=== PATIENT | male | born 1945 | race Caucasian/White ===

== ENCOUNTER 2022-11-08 09:20 | Outpatient (AMB) | payer MEDICARE, SELFPAY ==
[2022-11-08 09:27] VITALS: BP 120/69; PULSE 65; BMI 24.7
--- NOTE | 2022-11-08 09:27 | MHC.OFFVIS ---
Intake Vital Signs 11/08/22 09:27 Height 5 ft 4 in Weight 144 lb BMI 24.7 BP 120/69 Blood Pressure Location Rt brachial Position Sitting Pulse 65 Intake Visit Reasons: lump on arm Intake Note: Patient was self referred for growth on lt forearm. Presen for 2yrs. Denies pain, oozing or itch. C/o growth on Rt lat thigh X5yrs. C/o bothersome when rubbing with jeans. Denies pain, itch. No hx of skin ca. [employer] Coach Required: No Accompanied by: Self / Same As Patient Allergies penicillin G Allergy (Mild, Verified 11/08/22 09:31) Blister HPI HPI Comments History of Present Illness Details Patient presents for evaluation of 2 soft tissue masses. One involving his right mid formula involving his left lateral thigh. He has had the former approximately 2 years time in the latter approximately 3-5 years time. He wishes to have them excised. He has never had such masses/growths before. Chart was reviewed patient evaluate [facility] Medical History (Updated 11/08/22 @ 09:32 by ISAIAS Bryant) Metatarsal bone fracture Glaucoma Family History (Updated 11/08/22 @ 09:33 by ISAIAS Bryant) Mother Dementia Social History (Updated 11/08/22 @ 09:34 by ISAIAS Bryant) Alcohol intake: current Alcohol intake frequency: holidays/special occasions only Alcohol type: wine Patient Tobacco Use Status: Former Tobacco user Quit Date: 50 yrs ago Physical Exam Vital Signs: Last Vital Signs Pulse 65 11/08/22 09:27 BP 120/69 11/08/22 09:27 BMI result Body Mass Index 24.7 Extrem Other: Approximately 2 x 1 cm right lateral mid forearm soft tissue mass suggestive of lipoma. Left distal lateral thigh deeply situated mass also consistent with the lipoma, measuring approximately 3 x 3 cm Office Procedures Excision Details: Or risks, benefits, alternatives of excision of right forearm and left thigh soft tissue mass reviewed with the patient included but not limited to bleeding, infection, recurrence, numbness, pain, scarring the patient was to proceed. Consent form signed. All questions were answered. After appropriate positioning, each area was prepped and draped infiltrated 1% lidocaine. Respectively longitudinal incision was made over each lesion and carried down through skin, subcutaneous tissue. The form lesion measured approximately 1 x 1 cm. The left lateral thigh measured approximately 3 x 3 cm. Each specimen was separately sent to pathology. Each wound was irrigated, secured hemostasis, and closed using running subcuticular 3-0 Vicryl sutures followed by Steri-Strips and sterile dressings. Patient tolerated procedure well. 19750-apzzd/arms/legs 1.1-2cm 86326-ghbib/arms/legs 2.1-3cm Procedure code (CPT) selection complete Office Meds lidocaine 1 %-epinephrine 1:100,000 injection solution Performing Provider: Frantz Ng MD Performing Location: [facility] Administered by: Frantz Ng MD on 11/08/22 10:12 Dose Route Admin Location Dispensed Lot Number Expiration Date [facility] Customer Counter Representative 20 mL Infiltration 20 mL Assessment & Plan Assessment & Plan (1) Lipoma: Code(s): D17.9 - Benign lipomatous neoplasm, unspecified Plan: Patient has been given local instructions including avoiding strenuous activities, shower in 2 days, ice to the area, Tylenol or Motrin for pain. Patient will see me as directed or p.r.n.. Orders: Orders AMB Excision Today D17.9 - Benign lipomatous neoplasm, unspecified Coding Level of Care Code New Pt Level 4 (92538) Diagnoses Lipoma D17.9 CPT Codes Trunk/Arms/Legs - CPT: 42946-bdnui/arms/legs 1.1-2cm ([id number]) Trunk/Arms/Legs - CPT: 86059-ieblu/arms/legs 2.1-3cm ([id number])
== END 2022-11-08 09:43 | disposition home or self-care (01) ==
PROVIDERS: Visit Provider Surgery
DX: D18.01 Hemangioma of skin and subcutaneous tissue (principal)
CPT/HCPCS: 11400; 11403; 99204

== ENCOUNTER 2022-11-08 09:20 | Outpatient (REF) | payer MEDICARE, SELFPAY | END 2022-11-08 09:21 | disposition home or self-care (01) | LOC: HO.LNP 09:20 | PROVIDERS: Visit Provider Surgery | DX: D18.01 Hemangioma of skin and subcutaneous tissue (principal) | CPT/HCPCS: 11400; 11403; 88304; 88305; 88307 ==

== ENCOUNTER 2022-11-18 09:35 | Outpatient (AMB) | payer MEDICARE, SELFPAY ==
--- NOTE | 2022-11-18 09:39 | MHC.OFFVIS ---
Intake Vital Signs 11/18/22 09:42 Height 5 ft 4 in Weight 145 lb BMI 24.9 BP 113/72 Blood Pressure Location Rt brachial Position Sitting Pulse 61 Intake Visit Reasons: Follow up exc lumps from arm Intake Note: Patient here to f/u exc on Lt thigh and rt forearm. Reports incisions healing well. Denies bleeding or pain. Funeral Pre Need Consultant Required: No Accompanied by: Self / Same As Patient Allergies penicillin G Allergy (Mild, Verified 11/18/22 09:43) Blister HPI HPI Comments History of Present Illness Details Patient presents for follow-up. He has no wound issues or complaints. Pathology was reviewed and are both benign. [facility] Medical History Metatarsal bone fracture Glaucoma Surgical History (Updated 11/18/22 @ 10:32 by Frantz Ng MD) Lipoma Family History Mother Dementia Social History Alcohol intake: current Alcohol intake frequency: holidays/special occasions only Alcohol type: wine Patient Tobacco Use Status: Former Tobacco user Quit Date: 50 yrs ago Physical Exam Vital Signs: Last Vital Signs Pulse 61 11/18/22 09:42 BP 113/72 11/18/22 09:42 BMI result Body Mass Index 24.9 Extrem Other: Right upper extremity and left lower extremity wounds are clean dry and intact healing uneventfully. Assessment & Plan Assessment & Plan (1) Cavernous hemangioma of skin: Code(s): D18.01 - Hemangioma of skin and subcutaneous tissue Plan Patient has been given local wound instructions, and will follow-up p.r.n. Coding Level of Care Code Global (41410) Diagnoses Cavernous hemangioma of skin D18.01
[2022-11-18 09:42] VITALS: BP 113/72; PULSE 61; BMI 24.9
== END 2022-11-18 09:49 | disposition home or self-care (01) ==
PROVIDERS: Visit Provider Surgery
DX: D18.01 Hemangioma of skin and subcutaneous tissue (principal)
CPT/HCPCS: 99024

== ENCOUNTER → 2022-11-18 09:35 | Outpatient (BNVA) | payer MEDICARE, SELFPAY | PROVIDERS: Visit Provider Surgery ==